=== PATIENT | male | born 1975 | race Asian ===

== ENCOUNTER 2019-09-07 21:30 | Inpatient (IN) | payer OTHER ==
[~2019-09-07] VITALS: Ht 175.3 cm; Wt 145.1 kg
[2019-09-07 21:30] VITALS: BP 195/90; TEMP 101.6
[2019-09-07 22:47] LABS: POTASSIUM 4.7 mmol/L (3.6-5.2)
[2019-09-07 22:54] LABS: PLATELET COUNT 287 K/uL (142-355)
[2019-09-08] VITALS: BP 167/110; TEMP 98.9
[2019-09-08 00:02] LABS: PARTIAL THROMBOPLASTIN TIME 23.2 SECONDS (24.5-33.6)
[2019-09-08 01:56] VITALS: BP 162/94; TEMP 99.1; Ht 175.3 cm; Wt 145.1 kg
[2019-09-08 02:00] VITALS: BP 179/101
[2019-09-08 03:00] VITALS: BP 158/95
== END 2019-09-08 05:12 | disposition expired | DRG 189 ==
LOC: ED 21:30 → ICU 09-08 00:30
PROVIDERS: Family Medicine; ADMIT Internal Medicine Endocrinology, Diabetes & Metabolism
DX: J96.00 Acute respiratory failure, unspecified whether with hypoxia or hypercapnia (principal); B34.9 Viral infection, unspecified; R73.9 Hyperglycemia, unspecified; R74.8 Abnormal levels of other serum enzymes
CPT/HCPCS: 36415; 36600; 80053; 81000; 82805; 83605; 83880; 84484; 85027; 85379; 85610; 85730; 87040; 87077; 87185; 87186; 87205; 87502; 87635; 87651; 93005; 96365; 96375; 99285; J0171; J0456; J0461; J1650; J2060; J2250; J3490; U0002